=== PATIENT | female | born 1955 | race Caucasian/White ===

== ENCOUNTER → 2016-11-30 | Outpatient (CLI) | payer BC | END | disposition home or self-care (01) | LOC: GMAL 10:35 | PROVIDERS: ATTEND Family Medicine | DX: D51.3 Other dietary vitamin B12 deficiency anemia (principal); E83.42 Hypomagnesemia; D55.9 Anemia due to enzyme disorder, unspecified ==

== ENCOUNTER → 2017-01-13 | Outpatient (CLI) | payer SELFPAY ==
--- NOTE | 2017-01-13 12:17 | CT ---
EXAM DESCRIPTION: CT Abdomen/Pelvis w/wo Contrast CLINICAL HISTORY: POST-TRAUMA: ABD PAIN, LOW BACK PAIN, HEMATURIA COMPARISON: None. TECHNIQUE: Spiral-axial scans at 5.0 mm intervals through the abdomen and pelvis before and after standard dose nonionic IV contrast. Coronal and sagittal 2.0 mm reconstructions. Delayed 5 mm axial scans, liver through the pubic symphysis. No adverse reactions. Total Exam DLP 2477.01 mGy - cm. This exam was performed according to our departmental CT dose-optimization program which includes automated exposure control, adjustment of the mA and/or kV according to patient size and/or use of iterative reconstruction technique; to reduce radiation dose to as low as reasonably achievable (ALARA). FINDINGS: Lung bases and pleura: Negative. Liver, Stomach, Spleen, Adrenal Glands: Spleen is unremarkable with calcifications in the splenic hilum. At least one splenule inferior to the hilum. Normal density and enhancement of the liver with craniocaudal dimension of the right lobe 19 cm. Gastric antral diverticulum versus ulcer on the lesser curvature (series 4, image 29, and series 700, image 104). No perforation. 1 cm cyst versus adenoma in the right adrenal gland. Stomach is unremarkable. Pancreas, Gallbladder, Ducts: Surgical clips in the gallbladder fossa with no fluid. Minimal dilation of the duct. Normal size and enhancement of the pancreas. Kidneys and Ureters: Normal size density and enhancement. No hydronephrosis or hydroureter. No perirenal fatty stranding or fluid. No contrast extravasation from the kidneys or ureters. Mesentery: No free air or fatty stranding. No free fluid or fluid in the cul-de-sac. Aorta: Normal caliber. Periaortic tissues negative. Small Bowel: Normal caliber with no distention or significant air-fluid levels. Radiodense material in the distal small bowel. Terminal Ileum/Cecum: Normal caliber with no surrounding fatty stranding. Appendix is not seen. Colon: Fecal material throughout the colon with no distention. Mild redundancy of the sigmoid colon. Pelvic Organs: Uterus in normal position. Ovaries not well seen. No fluid in the cul-de-sac. No radiodense stones in the urinary bladder. Minimal IV contrast in the bladder on the delayed images. No contrast extravasation. Spine and Bony Pelvis: Spondylosis L4-5 and L5-S1 with degenerative gas formation at L4-5 and posterior disc bulge. Spondylosis also at L1-2 posterior disc bulge. No bone destruction. Mild levoscoliosis. No definite fracture or bone destruction.. Abdominal Wall/Back Soft Tissues: Increased density in the subcutaneous tissues at the level of the mid and inferior right kidney. No fluid collection or abnormal enhancement. Posterior abdominal wall in appearance, symmetric to the left side. IMPRESSION: 1. No abnormalities are noted in the urinary tract including the kidneys ureters and urinary bladder. 2. Possible gastric ulcer in the antrum on the lesser curvature. Less likely to represent a diverticulum. No findings of perforation. Consider gastroscopy. 3. Mild hepatomegaly with normal density and enhancement. No focal lesions. 4. Spondylosis at L1-2, L4-5 and L5-S1. Degenerative gas formation in the L4-5 disc with bulging. 5. Soft tissue fatty contusion, subcutaneous tissues, posterior to the mid and lower right kidney with no abnormal enhancement or fluid collection. CRITICAL COMMUNICATION: The critical value was discussed directly by phone with Dr. Johny Alvarez, at approximately 1208 hours, on January 13, 2017. Electronically signed by: Harjinder Plasencia MD 01/13/2017 12:16 PM CDT Workstation: [id number]
== END ==
LOC: CT 11:01
PROVIDERS: ATTEND Family Medicine
DX: R10.9 Unspecified abdominal pain (principal); M54.5 Low back pain; R31.0 Gross hematuria

== ENCOUNTER → 2017-01-13 | Outpatient (CLI) | payer BC | END | disposition home or self-care (01) | LOC: GMAL 14:39 | PROVIDERS: ATTEND Family Medicine | DX: R31.0 Gross hematuria (principal) ==

== ENCOUNTER → 2017-01-17 | Outpatient (CLI) | payer BC | END | disposition home or self-care (01) | LOC: GMAL 16:52 | PROVIDERS: ATTEND Family Medicine | DX: R31.0 Gross hematuria (principal) ==

== ENCOUNTER → 2017-02-22 | Outpatient (CLI) | payer BC | END | disposition home or self-care (01) | LOC: GMAL 10:40 | PROVIDERS: ATTEND Family Medicine | DX: D64.9 Anemia, unspecified (principal); E03.8 Other specified hypothyroidism ==

== ENCOUNTER → 2017-04-14 | Outpatient (CLI) | payer BC ==
--- NOTE | 2017-04-18 17:05 | MAM ---
EXAM DESCRIPTION: 3D Screening BILATERAL : Digital Mammography. CLINICAL HISTORY: 61 years Female SCREENING . No complaints. No family history of breast cancer. Postmenopausal. Taking HRT 5 or more years ago. COMPARISON: 2-D digital screening bilateral studies 11/17/2015 and 09/17/2014. No prior reports available. TECHNIQUE: Bilateral CC and MLO projection full-field images, 3-D tomosynthesis digital mammographic technique. Also bilateral synthesized CC/ MLO full-field images. CAD not utilized. FINDINGS: The breast parenchymal density pattern is: Scattered areas of fibroglandular density. No skin thickening or nipple retraction bilateral solitary microcalcifications. No focal, stellate mass or density, focal asymmetry , and no suspicious microcalcifications bilaterally. Stable mammograms compared to prior study, taking into account differences in mammographic technique IMPRESSION: BI-RADS CATEGORY: 2 - BENIGN FINDINGS. FOLLOW UP: Routine digital bilateral screening, one year interval from April 2017. Written communication explaining the IMPRESSION and follow-up, will be mailed to the patient and referring health care provider. According to the [employer], yearly mammograms are recommended starting at age 40 and continuing as long as a woman is in good health. Any breast change noted on a breast self-exam should be reported promptly to the patient's healthcare provider. Breast MRI is recommended for women with an approximately 20-25% or greater lifetime risk of breast cancer, including women with a strong family history of breast or ovarian cancer and women who have been treated for Hodgkin's disease. A negative mammographic report should not delay tissue diagnosis in patients with significant clinical history or physical findings. Extremely dense breast tissue limits the sensitivity of digital mammography. Electronically signed by: Harjinder Plasencia MD 04/18/2017 5:04 PM [facility]
== END ==
LOC: MAMMO 12:36
PROVIDERS: ATTEND Family Medicine
DX: Z12.31 Encounter for screening mammogram for malignant neoplasm of breast (principal)
CPT/HCPCS: 77063; G0202

== ENCOUNTER → 2017-04-25 | Outpatient (CLI) | payer BC ==
--- NOTE | 2017-04-25 16:14 | US ---
EXAM DESCRIPTION: Pelvis Transvaginal CLINICAL HISTORY: 61 years Female, POSTMENOPAUSAL VAGINAL BLEEDING COMPARISON: None. FINDINGS: Preliminary transabdominal imaging demonstrates no significant distention of the bladder and satisfactory visualization of the pelvic structures was not possible. Transvaginal imaging demonstrates an anteverted uterus is estimated at 9.3 x 3.8 x 5.9 cm. Endometrial stripe is estimated at four or 5 mm and felt to be within the limits of normal. In the anterior uterine body near the fundus to the right of midline is a hypoechoic partially shadowing 1.7 x 1.9 cm myometrial mass with a second mass in the lower uterine segment estimated at 1.6 x 1.8 cm. Left ovary is identified and estimated at 1.5 x 1.2 x 1.2 cm. The cervix is unremarkable. Right ovary is not visualized. No free abdominal fluid or pelvic fluid is evident. IMPRESSION: 1. Anteverted uterus borderline enlarged with at least two uterine fibroids estimated approaching 2 cm in size with 4 to 5 mm endometrium. 2. Normal-appearing small left ovary with nonvisualization of the right ovary but no adnexal masses seen. Electronically signed by: Jorgito White MD 04/25/2017 4:13 PM INTERNAL MEDICINE DOCTOR
== END | disposition home or self-care (01) ==
LOC: US 04-22 14:16
PROVIDERS: ATTEND Physician Assistant
DX: D25.9 Leiomyoma of uterus, unspecified (principal); N95.0 Postmenopausal bleeding

== ENCOUNTER → 2017-05-11 | Outpatient (CLI) | payer BC | END | disposition home or self-care (01) | LOC: GMAL 16:47 | PROVIDERS: ATTEND Family Medicine | DX: R53.82 Chronic fatigue, unspecified (principal) ==

== ENCOUNTER → 2017-05-12 | Outpatient (CLI) | payer BC | END | disposition home or self-care (01) | LOC: LAB.O 13:40 | PROVIDERS: ATTEND Family Medicine | DX: R19.7 Diarrhea, unspecified (principal); R50.9 Fever, unspecified ==

== ENCOUNTER → 2017-05-26 | Outpatient (CLI) | payer BC, OTHER ==
--- NOTE | 2017-05-26 22:34 | MRI ---
EXAM DESCRIPTION: Brain w/wo Contrast CLINICAL HISTORY: HEADACHES COMPARISON: None Available. TECHNIQUE: Contiguous axial images of the brain were obtained without and with the administration of intravenous contrast. FINDINGS: There is trace fluid in the right mastoid air cells. There is no acute intracranial hemorrhage or mass effect. Ventricular system is within normal limits. There is normal barrow-white matter differentiation. The visualized paranasal sinuses and mastoid air cells are otherwise within normal limits. No focal abnormal enhancement is seen. IMPRESSION: No acute intracranial abnormalities. Electronically signed by: Harjinder Yu 05/26/2017 10:33 PM [facility]
== END | disposition home or self-care (01) ==
LOC: MRI 08:07
PROVIDERS: ATTEND Family Medicine
DX: R51 Headache (principal)

== ENCOUNTER → 2017-10-04 | Outpatient (CLI) | payer BC ==
--- NOTE | 2017-10-06 09:07 | US ---
EXAM DESCRIPTION: Venous,Lower Extremity RT CLINICAL HISTORY: PAIN IN RIGHT LEG COMPARISON: None Available. TECHNIQUE: Right lower extremity venous duplex FINDINGS: Doppler evaluation of the right lower extremity deep veins was performed. Normal color flow is seen in the common femoral, superficial femoral, profunda femoral and greater saphenous veins. Normal flow is seen in the popliteal vein and veins below the knee in the calf. Normal venous compressibility and flow augmentation. IMPRESSION: Negative for evidence of deep venous thrombosis on right lower extremity venous Doppler sonogram. Electronically signed by: Yahir Reyes MD 10/06/2017 9:05 AM CDT
== END ==
LOC: US 15:47
PROVIDERS: ATTEND Nurse Practitioner Family
DX: M79.604 Pain in right leg (principal)

== ENCOUNTER → 2017-10-07 | Outpatient (CLI) | payer BC ==
--- NOTE | 2017-10-07 18:21 | RAD ---
EXAM DESCRIPTION: Pelvis CLINICAL HISTORY: 62 years Female, PAIN IN RIGHT HIP COMPARISON: Previous study June 03, 2016 TECHNIQUE: AP view of hips and pelvis FINDINGS: Sclerotic lesion in the proximal femur is seen which appears benign and unchanged. Prominent bone island or old bone infarct might be considered. Pelvic calcifications consistent with phleboliths. Mild degenerative changes in the lower L-spine. Bones of the pelvic ring appear intact. No hip fracture or dislocation. No change since previous study. IMPRESSION: Negative. Electronically signed by: Yahir Reyes MD 10/07/2017 6:20 PM CDT
--- NOTE | 2017-10-07 18:24 | RAD ---
EXAM DESCRIPTION: Knee,Right Complete CLINICAL HISTORY: 62 years, Female, PAIN IN RIGHT KNEE COMPARISON: Previous x-ray knee June 03, 2016 TECHNIQUE: Four views of the right knee including standing views FINDINGS: No fracture or dislocation. Bones appear normally mineralized with normal trabecular pattern. Narrowed appearance of medial more than lateral compartments on frontal view. Spurring is seen at tibial spines. Mild medial joint line spurring. Sclerosis and eburnation of the medial more than lateral femoral condyle is seen. Lateral view shows normal position of the patella. Mild posterior superior spurring of the patella. Question small suprapatellar knee joint effusion. Normal contour of quadriceps and patellar tendons. There is lateral tilt of the patella without subluxation on sunrise patellar view. Medial spurring is seen involving patella and anterior femoral trochlea. No change since previous study. IMPRESSION: Degenerative changes as described, stable since previous study. Electronically signed by: Yahir Reyes MD 10/07/2017 6:22 PM CDT
== END ==
LOC: RAD 08:15
PROVIDERS: ATTEND Orthopaedic Surgery
DX: M25.561 Pain in right knee (principal); M25.551 Pain in right hip

== ENCOUNTER → 2018-03-07 | Outpatient (CLI) | payer BC | LOC: GMAL 10:51 | PROVIDERS: ATTEND Family Medicine | DX: D51.3 Other dietary vitamin B12 deficiency anemia (principal); E03.8 Other specified hypothyroidism; I10 Essential (primary) hypertension; E78.4 Other hyperlipidemia; E55.9 Vitamin D deficiency, unspecified ==

== ENCOUNTER → 2018-03-09 | Outpatient (CLI) | payer BC ==
--- NOTE | 2018-03-13 07:25 | MRI ---
Procedure: MR RIGHT KNEE WITHOUT IV CONTRAST Exam Date: 03/09/2018 12:00 AM CDT Ordering Provider: FLORENCE SHAH Clinical Indication: Right knee pain Comparison: None TECHNIQUE: Multiplanar, multisequence MR images of the right knee were obtained. FINDINGS: ACL and PCL are intact. Complex tear of the medial meniscus involving a posterior root avulsion as well as an oblique undersurface tear in the body of the medial meniscus. There is 5 mm of meniscal extrusion. Resultant full-thickness chondrosis in the medial compartment with subchondral edema and cystic changes seen within the medial femoral condyle as well as tibial plateau. MCL is bowed yet intact. Findings are compatible with chronic grade 1 MCL sprain. The lateral meniscus is intact. Lateral compartment cartilage demonstrates mild chondrosis without full-thickness defect.. Lateral collateral ligamentous complex is intact. Patellofemoral extensor mechanism is unremarkable. Multifocal patchy full-thickness chondrosis is seen within the lateral more so than medial patellar facet predominantly inferiorly. Trochlear cartilage appears preserved. Small joint effusion with synovitis. No definite loose bodies. Trace septated Castellon cyst. Bone marrow is otherwise unremarkable. IMPRESSION: 1. Multifocal medial meniscal tear including a posterior root avulsion tear as well as oblique undersurface tear of the body of the medial meniscus. Resultant full-thickness medial compartment chondrosis. 2. Patchy full-thickness chondrosis in the patellofemoral compartment. 3. Small joint effusion and synovitis with trace septated Castellon cyst. Electronically signed by: Patricio Alexandra MD 03/13/2018 7:23 AM CDT
== END ==
LOC: MRI 11:05
PROVIDERS: ATTEND Family Medicine
DX: S83.241A Other tear of medial meniscus, current injury, right knee, initial encounter (principal); M22.41 Chondromalacia patellae, right knee; M71.21 Synovial cyst of popliteal space [Baker], right knee; M25.461 Effusion, right knee

== ENCOUNTER → 2018-04-12 | Outpatient (CLI) | payer BC | LOC: GMAL 17:11 | PROVIDERS: ATTEND Family Medicine | DX: R30.0 Dysuria (principal) ==

== ENCOUNTER → 2018-04-18 | Outpatient (CLI) | payer BC | LOC: RESP 15:59 | PROVIDERS: ATTEND Orthopaedic Surgery | DX: Z01.818 Encounter for other preprocedural examination (principal) ==

== ENCOUNTER → 2018-04-21 | Outpatient (CLI) | payer BC ==
--- NOTE | 2018-04-24 15:23 | MAM ---
EXAM DESCRIPTION: 3D Screening BILATERAL : Digital Mammography. CLINICAL HISTORY: 62 years Female SCREENING . No complaints. No personal or family history of breast cancer. Childbirth. Postmenopausal 10 years. Has taken HRT previously.. Lifetime risk of developing breast cancer (Tyrer-Cuzick model)(%): 6.6. COMPARISON: Bilateral screening digital breast tomosynthesis 04/14/2017.. No prior reports available. TECHNIQUE: Bilateral CC and MLO projection full-field images, digital tomosynthesis mammographic technique. Bilateral digital 2-D full-field MLO images. CAD not available for tomosynthesis or 2-D images. FINDINGS: The breast parenchymal density pattern is: Scattered areas of fibroglandular density. No skin thickening or nipple retraction.. Bilateral scattered nodular densities are stable since the prior study. No new focal, stellate mass or density, focal asymmetry , and no suspicious microcalcifications bilaterally. Stable mammograms compared to prior study. IMPRESSION: Benign exam. BIRAD CATEGORY: 2 BENIGN FINDINGS. RECOMMENDATIONS: FOLLOW UP: Routine digital bilateral mammographic screening, one year interval from April 2018. Written communication explaining the IMPRESSION and follow-up, will be mailed to the patient and referring health care provider. According to the [employer], yearly mammograms are recommended starting at age 40 and continuing as long as a woman is in good health. Any breast change noted on a breast self-exam should be reported promptly to the patient's healthcare provider. Breast MRI is recommended for women with an approximately 20-25% or greater lifetime risk of breast cancer, including women with a strong family history of breast or ovarian cancer and women who have been treated for Hodgkin's disease. A negative mammographic report should not delay tissue diagnosis in patients with significant clinical history or physical findings. Extremely dense breast tissue limits the sensitivity of digital mammography. Electronically signed by: Harjinder Plasencia MD 04/24/2018 3:22 PM ASSISTANT SPA DIRECTOR
== END ==
LOC: MAMMO 08:22
PROVIDERS: ATTEND Family Medicine
DX: Z12.31 Encounter for screening mammogram for malignant neoplasm of breast (principal)

== ENCOUNTER → 2018-04-23 | Outpatient (CLI) | payer BC | LOC: SL 19:30 | PROVIDERS: ATTEND Family Medicine | DX: G47.33 Obstructive sleep apnea (adult) (pediatric) (principal) ==

== ENCOUNTER 2018-04-26 05:42 | Inpatient (IN) | payer BC ==
--- NOTE | 2018-04-24 09:58 | HP ---
CHIEF COMPLAINT: Right knee pain. HISTORY OF PRESENT ILLNESS: Mary is a 62-year-old female with a history of pain in the knee. She has had pain going on that causes her discomfort diffusely about the knee. She denies any radiation of that pain and denies any neurologic symptoms. She has had no trauma related to the pain. She has failed conservative measures. Because of her failure of conservative measures, she has requested operative intervention. After discussing the risks, benefits and alternatives to that, the patient has given informed consent for total knee arthroplasty. PAST SURGICAL HISTORY: 1. Cataract removal. 2. Carpal tunnel syndrome. 3. Cholecystectomy. 4. section. 5. Tubal ligation. MEDICATIONS: 1. Tylenol with codeine. 2. Cyclobenzaprine. 3. Duloxetine. 4. Estradiol. 5. Folate. 6. Hydrochlorothiazide. 7. Hydroxychloroquine. 8. Leflunomide. 9. Levothyroxine. 10. Losartan. 11. Medroxyprogesterone. 12. Methotrexate. 13. Metronidazole. 14. Mometasone. 15. Montelukast. 16. Naprosyn. 17. Pantoprazole. 18. ProAir. 19. Ranitidine. 20. Sertraline. 21. Tramadol. ALLERGIES: DOXYCYCLINE. FAMILY HISTORY: None pertinent to today's complaint. SOCIAL HISTORY: The patient does not drink, smoke or use any illicit drugs. REVIEW OF SYSTEMS: Negative except as indicated in the History of Present Illness. PHYSICAL EXAMINATION: MENTAL STATUS: The patient is awake, alert, and is able to give a good history and participate in the physical. The patient is oriented to person, place and time. SKIN: Normal tone and turgor. HEENT: Normocephalic, atraumatic. Pupils equal, round and reactive. Mucosal membranes are moist. NECK: Normal range of motion. No thyromegaly, no lymphadenopathy. CHEST: Normal respiratory excursion. CARDIAC: Regular rate and rhythm. No murmurs, rubs or gallops. MUSCULOSKELETAL: She has pain diffusely about the knee, but most prominent along the medial aspect. She has crepitus throughout her range of motion. Sensation is intact. The leg is warm and well perfused. She has no varus/ valgus or anterior/posterior laxity. She has full extension with flexion to about 120 degrees and crepitus throughout. The bilateral upper extremities show full active range of motion without pain. She has intact sensation. They are warm and well perfused. Strength is 5/5. There is no deformity. The left lower extremity shows no significant pain to palpation. She has intact sensation throughout. There is no varus/valgus or anterior/posterior laxity. She does walk with an assistive device. IMAGING: X-rays show arthritis, especially along the medial compartment. ASSESSMENT: 1. Rheumatoid arthritis. PLAN: The plan at this point is for total knee arthroplasty. We have discussed the risks, benefits, and alternatives to that and the patient has given informed consent. #[id number] [facility]
[2018-04-26] MEDS ORDERED: LACTATED RINGERS 1,000 ML ONE ×2 (05:53→10:22)
[2018-04-26] MEDS ORDERED: SODIUM CHL 0.9% 100ML MINI-BAG 100 ML IVPB ONE (05:53)
[2018-04-26] MEDS ORDERED: TRANEXAMIC ACID 1,000 MG/10 ML VIAL ONE ×2 (05:53→05:54)
[2018-04-26] MEDS ORDERED: ceFAZolin SODIUM 1 GM VIAL ONE ×2 (05:53→06:32)
[2018-04-26] MEDS ORDERED: VANCOMYCIN HCL INJ 1,000 MG VIAL IVPB ONE ×4 (05:53→19:39)
[2018-04-26] MEDS ORDERED: SODIUM CHLORIDE 0.9% 250ML 250 ML ONE ×3 (05:54→19:38)
[2018-04-26] MEDS ORDERED: SODIUM CHLORIDE 0.9% 100ML 100 ML IVPB ONE (05:55)
[2018-04-26] MEDS ORDERED: MIDAZOLAM INJ 2 MG/2 ML VIAL ONE (06:30)
[2018-04-26] MEDS ORDERED: fentaNYL CITRATE INJ 50 MCG/ML AMP ONE (06:31)
[2018-04-26] MEDS ORDERED: MORPHINE SULF *EPIDURAL* 1 MG/ML VIAL ONE (06:31)
[2018-04-26] MEDS ORDERED: ACETAMINOPHEN IV 1000MG 100 ML ONE (06:31)
[2018-04-26] MEDS ORDERED: SCOPOLAMINE PATCH 1.5MG 1 EA TD ONE (07:26)
[2018-04-26] MEDS: BUPIVACAINE 0.5% 30 ML VIAL INJ ONE ×2 (07:55→08:26)
[2018-04-26] MEDS: BUPIVACAINE LIPOSOME 13.3 MG/ML VIAL INJ ONE ×2 (07:55→08:26)
[2018-04-26] MEDS ORDERED: hydrALAZINE HCl 20 MG/ML VIAL ONE (08:06)
[2018-04-26] MEDS ORDERED: BUPIVACAINE LIPOSOME 13.3 MG/ML VIAL INJ ONE (08:26)
[2018-04-26] MEDS ORDERED: ELECTROLYTE-A 1,000 ML IVS ONE (08:33)
[2018-04-26] MEDS ORDERED: ACETAMINOPHEN 325 MG TAB PO PRN (09:22)
[2018-04-26] MEDS ORDERED: MAGNESIUM HYDROXIDE 30 ML UD PO PRN (09:22)
[2018-04-26] MEDS ORDERED: PROMETHAZINE HCL INJ 12.5 MG in SODIUM CHLORIDE 0.9% 50ML 50 ML IVPB PRN (09:22)
[2018-04-26] MEDS ORDERED: BENZOCAINE-MENTH LOZ (CEPACOL) 1 EA LOZ MT PRN (09:22)
[2018-04-26] MEDS ORDERED: NALOXONE HCL INJ 0.4 MG/ML VIAL IV PRN (09:22)
[2018-04-26] MEDS ORDERED: ZOLPIDEM TARTRATE 5 MG TAB PO PRN (09:22)
[2018-04-26] MEDS ORDERED: MORPHINE SULFATE INJ 10 MG/ML VIAL IM PRN (09:22)
[2018-04-26] MEDS ORDERED: ONDANSETRON INJ 4 MG/2 ML VIAL IV PRN (09:22)
[2018-04-26] MEDS ORDERED: TEMAZEPAM 15 MG CAP PO PRN (09:22)
[2018-04-26] MEDS ORDERED: MORPHINE SULFATE INJ 10 MG/ML VIAL IV PRN (09:22)
[2018-04-26] MEDS ORDERED: BISACODYL SUPPOSITORY 10 MG PR PRN (09:22)
[2018-04-26] MEDS ORDERED: ALUMINUM & MAGNESIUM HYDROXIDE 30 ML UD PO PRN (09:22)
[2018-04-26] MEDS ORDERED: PROMETHAZINE HCL INJ 25 MG in SODIUM CHLORIDE 0.9% 50ML 50 ML IVPB PRN (09:22)
[2018-04-26] MEDS ORDERED: traMADol HCL 50 MG TAB PO PRN (09:22)
[2018-04-26] MEDS ORDERED: ACETAMINOPHEN 500 MG TAB PO PRN (09:22)
[2018-04-26] MEDS ORDERED: TRANEXAMIC ACID INJ 1,000 MG in SODIUM CHLORIDE 0.9% 100ML 100 ML IVPB ONE (09:22)
[2018-04-26] MEDS ORDERED: MORPHINE PCA 1 MG/ML 100 ML BAG IVPB SCH (09:30)
[2018-04-26] MEDS ORDERED: METOCLOPRAMIDE HCL INJ 10 MG/2 ML VIAL IV ONE (10:00)
[2018-04-26] MEDS ORDERED: LIDOCAINE 1% 10 ML VIAL INJ ONE (10:00)
[2018-04-26] MEDS ORDERED: PROPOFOL 200 MG/20 ML VIAL IV ONE (10:00)
[2018-04-26] MEDS ORDERED: DEXAMETHASONE INJ 10 MG/ML VIAL IV ONE (10:00)
[2018-04-26] MEDS ORDERED: GLUCAGON INJ 1 MG VIAL SUBCU PRN (13:59)
[2018-04-26] MEDS ORDERED: DEXTROSE 50% 25 GM/50 ML SYG IV PRN (13:59)
[2018-04-26] MEDS ORDERED: INSULIN LISPRO 100 UNITS/ML PEN SUBCU ONE (13:59)
[2018-04-26] MEDS: IV SET AND CAP CHANGE INJ INJ SCH (14:26)
[2018-04-26] MEDS ORDERED: ceFAZolin SODIUM 2 GRAMS PREMI 50 ML IVPB ONE ×2 (16:17→19:39)
[2018-04-26] MEDS ORDERED: SODIUM CHLORIDE 0.9% 50ML 50 ML ONE (16:17)
[2018-04-26] MEDS ORDERED: PROMETHAZINE HCL INJ 25 MG/ML VIAL ONE (16:17)
[2018-04-26] MEDS: SODIUM CHLORIDE 0.9% (FLUSH) 10 ML SYG IV PRN ×2 (16:25→18:11)
[2018-04-26] MEDS: DEX 5% W/NACL 0.45% 1000ML 1,000 ML IVS PRN (16:25)
[2018-04-26] MEDS: ceFAZolin SODIUM 2 GRAMS PREMI 2 GM in PREMIX BAG 1 BAG IVPB SCH ×2 (16:28→23:48)
--- NOTE | 2018-04-26 17:01 | RAD ---
EXAM DESCRIPTION: Knee,Right 2 or More Views CLINICAL HISTORY: 62 years Female, TKA TECHNIQUE: 2 views of the right knee were performed. COMPARISON: October 07, 2017. FINDINGS: Postsurgical changes consistent with recent total knee arthroplasty are noted. The hardware appears to be in near normal anatomic alignment. Moderate suprapatellar joint effusion noted. The overlying anterior subcutaneous soft tissues demonstrate air likely sequela of recent surgery. Mild soft tissue swelling noted surrounding the knee joint. IMPRESSION: 1. Recent postsurgical changes consistent with right total knee arthroplasty with intact hardware. Electronically signed by: Raheem Aranda MD 04/26/2018 4:59 PM [facility]
[2018-04-26] MEDS: INSULIN LISPRO 100 UNITS/ML PEN SUBCU SCH ×2 (17:18→21:42)
[2018-04-26] MEDS: CELECOXIB 100 MG CAP PO SCH (17:20)
[2018-04-26] MEDS: VANCOMYCIN HCL INJ 1,000 MG in SODIUM CHLORIDE 0.9% 250ML 250 ML IVPB SCH (18:10)
[2018-04-26] MEDS ORDERED: ENOXAPARIN SODIUM 30 MG/0.3 ML SYG SUBCU ONE (19:39)
[2018-04-26] MEDS: DULoxetine HCL 30 MG CAP PO SCH (20:22)
[2018-04-26] MEDS: LOSARTAN POTASSIUM 100 MG TAB PO SCH (20:23)
[2018-04-26] MEDS: MONTELUKAST 10 MG TAB PO SCH (20:23)
[2018-04-26] MEDS: DOCUSATE CALCIUM 240 MG CAP PO SCH (20:23)
[2018-04-26] MEDS: NON-FORMULARY MEDICATION 1 EA MIS (Hydroxychloroquine [Plaquenil] 200 MG) PO SCH (20:25)
--- NOTE | 2018-04-26 22:57 | CONS ---
DATE OF CONSULTATION: 04/26/18 SUPERVISING PHYSICIAN: Jorgito Gage M.D. REASON FOR CONSULTATION: Right total knee arthroplasty. HISTORY OF PRESENT ILLNESS: Ms. Cline is a 62 year-old female patient that has a longstanding history of knee pain. The pain had been causing her significant discomfort and interfering with her activities of daily living. She denied any trauma related to the pain but it failed to have any significant relief of the pain after conservative measures. Due to the failure of the conservative measures she requested elective operative intervention to help with knee pain. She was admitted today for elective total right knee arthroplasty. She had no intraoperative complications and was seen in the immediate postoperative state. She was seen in stable condition. PAST MEDICAL HISTORY: 1. Asthma. 2. Gastroesophageal reflux disease. 3. Irritable bowel syndrome with diarrhea predominantly diagnosed in 2018. 4. Prajapati's neuroma. 5. Right renal contusion and hematuria in 2017. 6. Allyson's thyroiditis. 7. Iron deficiency anemia. 8. Depression. 9. Rosacea. 10. Obstructive sleep apnea recently diagnosed within the last week not currently on CPAP. PAST SURGICAL HISTORY: 1. Appendectomy. 2. Cholecystectomy. 3. section times 1. 4. Bilateral cataract removal. HOME MEDICATIONS: 1. Synthroid 0.12 mg daily. 2. Zantac 300 mg daily. 3. Vitamin D3 4,000 units daily. 4. Turmeric 1 capsule daily. 5. Magnesium 400 mg 1 daily. 6. Imodium AD 2 mg daily as needed. 7. Align 4 mg daily. 8. Albuterol Pro inhaler 2 puffs every 6 hours as needed. 9. Tramadol 50 mg every 6 hours as needed. 10. Flexeril 5 mg at bedtime as needed. 11. Hydrochlorothiazide 12.5 mg daily. 12. Folic acid 3 mg daily. 13. Cymbalta 60 mg at bedtime. 14. Cozaar 100 mg at bedtime. 15. Arava 20 mg daily. 16. Plaquenil 200 mg b.i.d. 17. Potassium chloride 10 mEq daily. 18. Pantoprazole 40 mg daily. 19. Singulair 10 mg at bedtime. 20. Systane Ultra as needed. ALLERGIES: PREVNAR 13, ALUMINUM, DIPHTHERIA TOXOID, DOXYCYCLINE, SORBITAN. FAMILY HISTORY: Father has history of type 2 diabetes mellitus with bilateral knee replacements. Mother is healthy. She has 3 brothers, one with diabetes and colon polyps, one with arthritis and another that is healthy. She has 2 sisters, one with depression, the other with Crohn's, diabetes and colon polyps. She has 1 sone who is healthy and one daughter who is healthy. 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 She is . She has 2 children. She has never smoked. She does not drink alcohol or use illicit drugs. She lives in [place], [place]. REVIEW OF SYSTEMS: CONSTITUTIONAL: Denies any fevers, chills, body aches, general malaise, unintentional weight loss or gain. HEENT: Denies any headaches, sore throat, nasal congestion, ear aches, vision changes. RESPIRATORY: Denies shortness of breath, coughing or wheezing. CARDIOVASCULAR: Denies any chest pains, palpitation or syncopal episodes. GASTROINTESTINAL: Has history of irritable bowel syndrome with predominantly diarrhea, but denies any constipation, abdominal pains. GENITOURINARY: Denies dysuria, hematuria or polyuria, or other urinary symptoms. MUSCULOSKELETAL: As noted in History of Present Illness. NEUROLOGIC: Denies any syncopal episodes, ataxia, seizures or other neuromotor deficits. PHYSICAL EXAMINATION: VITAL SIGNS: Temperature 96, pulse 82, blood pressure 123/82, respirations 14, satting 92% on room air. Weight 118.3 kg. GENERAL: The patient is seen in the immediate postoperative state. She is diaphoretic but complains of no chest pains, shortness of breath. Just has a feeling of hot flashes but appears to be in no acute distress. CHEST: Lungs are clear to auscultation bilaterally. HEART: Regular rate and rhythm with no appreciable murmurs, gallops, or rubs. ABDOMEN: Obese but soft, non-tender with positive bowel sounds. EXTREMITIES: Right knee has a large dressing in place with Iceman. Distally pulses were 2+ bilaterally with capillary refill brisk. NEUROLOGIC: She is alert and oriented times three. Facial features were symmetrical. Extraocular movements are within normal limits. There is no notable nystagmus. She moves all extremities ad vito. INTEGUMENT: Skin is diaphoretic but warm and pink. LABORATORY: Postoperative glucose was 240, troponin was less than 0.02. Postoperative H&H is pending. EKG postoperatively showed no acute ST changes or T wave inversions and is unchanged from preoperative EKG. RADIOLOGY: Postoperative right knee x-ray per radiology interpretation shows recent post surgical changes consistent with total right knee arthroplasty with hardware. ASSESSMENT: 1. Right knee pain failing to respond to outpatient treatment measures requiring elective surgical procedure to include elective total right arthroplasty for symptom control, immediate postoperative day 0. Surgery performed by Dr. Cl George, orthopedic surgeon. 2. History of asthma. 3. Gastroesophageal reflux disease, monitoring. 4. History of irritable bowel syndrome with no complications with primarily diarrhea. 5. 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 6. History of iron deficiency anemia. 7. Depression. 8. History of rosacea. PLAN: Will follow the patient postoperatively as she progresses through her physical therapy and rehabilitation phase of her surgery. Will defer management orthopedic and physical therapy to Dr. George and Physical Therapy. Will resume her home medications once those have been updated and verified as appropriate. Will anticipate her length of stay to be at least 2 to 3 days. At this time, discharge plan in place as far as continued physical therapy. Will continue to follow that prior to discharge. Until she has met her physical therapy goals and can transition to outpatient management will continue to monitor and treat as needed. #[id number] [facility]
[2018-04-26] MEDS: ENOXAPARIN SODIUM 30 MG/0.3 ML SYG SUBCU SCH (23:35)
[2018-04-27] MEDS: VANCOMYCIN HCL INJ 1,000 MG in SODIUM CHLORIDE 0.9% 250ML 250 ML IVPB SCH (05:49)
[2018-04-27] MEDS ORDERED: ceFAZolin SODIUM 2 GRAMS PREMI 50 ML IVPB ONE (08:24)
[2018-04-27] MEDS: CELECOXIB 100 MG CAP PO SCH ×2 (08:29→17:12)
[2018-04-27] MEDS ORDERED: diphenhydrAMINE HCL 50 MG/ML VIAL IV PRN (08:42)
[2018-04-27] MEDS: HYDROcodone 5MG/APAP 325MG 1 EA TAB PO PRN (08:54)
[2018-04-27] MEDS: INSULIN LISPRO 100 UNITS/ML PEN SUBCU SCH ×4 (08:59→21:08)
[2018-04-27] MEDS: ceFAZolin SODIUM 2 GRAMS PREMI 2 GM in PREMIX BAG 1 BAG IVPB SCH (08:59)
[2018-04-27] MEDS ORDERED: MAGNESIUM OXIDE 400 MG TAB PO SCH (09:00)
[2018-04-27] MEDS: BIFIDOBACTERIUM INFANTIS 4 MG CAP PO SCH (09:03)
[2018-04-27] MEDS: POTASSIUM CHLORIDE 10 MEQ TAB PO SCH (09:04)
[2018-04-27] MEDS: LEVOTHYROXINE SODIUM 0.112 MG TAB PO SCH (09:04)
[2018-04-27] MEDS: PANTOPRAZOLE SODIUM TAB 40 MG PO SCH (09:04)
[2018-04-27] MEDS: NON-FORMULARY MEDICATION 1 EA MIS (Hydroxychloroquine [Plaquenil] 200 MG) PO SCH ×2 (09:05→21:08)
[2018-04-27] MEDS: MAGNESIUM OXIDE 400 MG TAB PO SCH (09:05)
[2018-04-27] MEDS: hydroCHLOROthiazide 12.5 MG CAP PO SCH (09:05)
--- NOTE | 2018-04-27 10:07 | PN ---
DATE: 04/26/18 POSTOPERATIVE CHECK SUBJECTIVE: Ms. Cline is doing well. Her pain is well controlled. OBJECTIVE: Afebrile. Vital signs stable. Dressing is clean, dry and intact. ASSESSMENT: Status post total knee arthroplasty. PLAN: The plan at this point is to begin weightbearing as tolerated on postoperative day 1. #[id number] [facility]
--- NOTE | 2018-04-27 10:10 | PN ---
DATE: 04/27/18 POSTOPERATIVE DAY 1 SUBJECTIVE: Ms. Cline is doing well and has adequate pain control right now. OBJECTIVE: Afebrile. Vital signs stable. Dressing is clean, dry and intact. ASSESSMENT: Status post total knee arthroplasty. PLAN: The plan at this point is to begin weightbearing as tolerated and increase CPM. [facility][id number] [facility]
--- NOTE | 2018-04-27 10:22 | OP ---
DATE OF PROCEDURE: 04/26/18 PREOPERATIVE DIAGNOSIS: 1. Rheumatoid arthritis. POSTOPERATIVE DIAGNOSIS: 1. Rheumatoid arthritis. PROCEDURE: 1. Total knee arthroplasty. SURGEON: Cl George MD. ESTHETICIAN: Harjinder Rollins CST, SA-Lois. ANESTHESIA: General anesthesia. COMPLICATIONS: None. FINDINGS: Severe arthritis with worsening of medial osteoarthritis of the knee. INDICATION: Ms. Cline has a history of arthritis for which she has undergone conservative measures. Unfortunately, she has failed to gain relief. Because of her ongoing symptoms, she has requested operative intervention. After discussing the risks, benefits and alternatives to that, the patient has given informed consent for total knee arthroplasty. PROCEDURE: The patient was brought to the Operating Room and placed in supine position. General anesthesia was induced and the patient's leg was sterilely prepped and draped. Following prepping and draping, the distal femur was exposed and using an intramedullary guide, the distal femoral cut was made. The appropriate sized cutting block was measured, pinned into place, and the anterior, posterior, and chamfer cuts were made. The ACL was transected and the tibia was subluxed. Both the medial and lateral menisci were removed. An intramedullary guide was used to make the proximal tibial cut. The appropriate sized base plate was placed and a trial polyethylene was placed. The trial femur was placed, the knee was reduced, and the knee was taken through a range of motion. The knee was stable in anterior, posterior, varus and valgus stress. The patella was measured with calipers and following that, approximately 9 mm of patellar surface was removed. A size 31 patellar component was used. Following that, the trial components were removed and the bony surfaces were thoroughly irrigated with saline. Following irrigation, the surfaces were dried and the final components were cemented into place. The excess cement was removed and the remaining cement was allowed to cure. The knee was again taken through a range of motion to confirm stability. The wound was then irrigated with saline and closure was performed using PDS to approximate the arthrotomy followed by closure of the subcutaneous tissues with a combination of running and interrupted Monocryl sutures. Sterile dressing was placed. The patient was awoken from anesthesia and taken to Recovery. POSTOPERATIVE PLAN: The patient will be weight-bearing as tolerated on postoperative day 1. COMPONENTS: Rick Triathlon knee, size 4 femur, size 4 tibia, 9 mm insert, size 31 patella. [facility][id number] [facility]
[2018-04-27] MEDS: FOLIC ACID 1 MG TAB PO SCH (11:05)
[2018-04-27] MEDS: ENOXAPARIN SODIUM 30 MG/0.3 ML SYG SUBCU SCH ×2 (11:05→23:10)
[2018-04-27] MEDS: NON-FORMULARY MEDICATION 1 EA MIS (Leflunomide [Arava] 20 MG) PO SCH ×2 (11:05→12:45)
[2018-04-27] MEDS: CYCLOBENZAPRINE HCL 10 MG TAB PO PRN (17:43)
[2018-04-27] MEDS: DEX 5% W/NACL 0.45% 1000ML 1,000 ML IVS PRN (19:50)
[2018-04-27] MEDS: DULoxetine HCL 30 MG CAP PO SCH (21:08)
[2018-04-27] MEDS: LOSARTAN POTASSIUM 100 MG TAB PO SCH (21:08)
[2018-04-27] MEDS: DOCUSATE CALCIUM 240 MG CAP PO SCH (21:09)
[2018-04-27] MEDS: MONTELUKAST 10 MG TAB PO SCH (21:09)
[2018-04-28] MEDS: HYDROcodone 5MG/APAP 325MG 1 EA TAB PO PRN ×2 (06:09→14:56)
[2018-04-28] MEDS: LEVOTHYROXINE SODIUM 0.112 MG TAB PO SCH (06:10)
[2018-04-28] MEDS: INSULIN LISPRO 100 UNITS/ML PEN SUBCU SCH ×2 (07:18→11:32)
[2018-04-28] MEDS: CELECOXIB 100 MG CAP PO SCH ×2 (07:23→16:45)
[2018-04-28] MEDS: POTASSIUM CHLORIDE 10 MEQ TAB PO SCH (07:34)
--- NOTE | 2018-04-28 07:54 | PN ---
SUPERVISING PHYSICIAN: Jorgito Gage MD DATE: 04/27/18 SUBJECTIVE: The patient appears to be doing much better today. She has had no additional diaphoretic episodes. She is much more alert. She has had good pain control and has been utilizing CPM. OBJECTIVE: VITAL SIGNS: temperature 98.5, pulse 76, blood pressure 132/78, respirations 18 , saturation 98% on 2 liters nasal cannula at rest. I&O: Positive balance of 2428 with 4628 in, 2200 out, weight 118.3 kg. GENERAL: The patient is alert this morning, she is resting and appears in no acute distress utilizing CPM. CHEST: Lungs are clear to auscultation bilaterally. HEART: Regular rate and rhythm. ABDOMEN: Soft, non-tender, positive bowel sounds. EXTREMITIES: Right knee has Chavo bandage in place. Distal pulses are strong, capillary refill brisk. NEUROLOGICAL: She is alert and oriented x 3. LABORATORY: Postoperative hemoglobin 10.8 and hematocrit 33.6. Blood sugars are now better controlled between 145 and 207. ASSESSMENT: 1. Chronic right knee pain having failed to respond to outpatient treatment measures requiring elective surgical procedure to include elective total right arthroplasty for symptom control with patient being postoperative #1.being performed by Dr. Cl George, orthopedic surgeon. 2. History of asthma, stable. 3. Gastroesophageal reflux disease, chronic and monitoring, stable. 4. History of irritable bowel syndrome with no complications with primarily diarrhea symptoms, chronic and monitoring. 5. Hypothyroidism secondary to Allyson's thyroiditis on supplementation, chronic. 6. History of iron deficiency anemia, chronic. 7. Depression. 8. History of rosacea. PLAN: Will continue to follow the patient as she progresses through her physical therapy and rehabilitation efforts. She is again encouraged to utilize incentive spirometry and deep breathing exercises. Will continue to follow for any postoperative complications. Anticipate discharge either Tuesday or Tuesday. Once discharged and transitioned to outpatient management, will continue [facility]. Until the, we will continue to monitor and treat as needed. [facility][id number] [facility]
[2018-04-28] MEDS: CYCLOBENZAPRINE HCL 10 MG TAB PO PRN (09:08)
[2018-04-28] MEDS: PANTOPRAZOLE SODIUM TAB 40 MG PO SCH (09:09)
[2018-04-28] MEDS: hydroCHLOROthiazide 12.5 MG CAP PO SCH (09:09)
[2018-04-28] MEDS: BIFIDOBACTERIUM INFANTIS 4 MG CAP PO SCH (09:10)
[2018-04-28] MEDS: MAGNESIUM OXIDE 400 MG TAB PO SCH (09:10)
[2018-04-28] MEDS: NON-FORMULARY MEDICATION 1 EA MIS (Hydroxychloroquine [Plaquenil] 200 MG) PO SCH ×2 (09:11→20:31)
[2018-04-28] MEDS: (Leflunomide [Arava] 10 MG) PO SCH (09:11)
[2018-04-28] MEDS: FOLIC ACID 1 MG TAB PO SCH (09:12)
[2018-04-28] MEDS: SODIUM CHLORIDE 0.9% (FLUSH) 10 ML SYG IV SCH ×2 (09:12→20:31)
[2018-04-28] MEDS: ENOXAPARIN SODIUM 30 MG/0.3 ML SYG SUBCU SCH ×2 (11:26→22:38)
--- NOTE | 2018-04-28 13:08 | PN ---
DATE: 04/28/18 SUBJECTIVE: She is doing pretty well and is not having significant amount of pain. OBJECTIVE: Afebrile. Vital signs stable. Wound is clean. There are no signs or symptoms of infection. ASSESSMENT: Status post total knee arthroplasty. PLAN: The plan at this point is for her to continue with weightbearing status. She will continue increasing CPM as tolerated. [facility][id number] [facility]
--- NOTE | 2018-04-28 15:58 | PN ---
DATE: 04/28/18 SUPERVISING PHYSICIAN: Jorgito Gage MD SUBJECTIVE: The patient is doing very well. She has okay control of her pain but it is still continuing to need intermittent IV pain management. She is starting to participate with physical therapy but due to pain management requirements is having some slow improvement. She is without any nausea, vomiting, diarrhea and has been afebrile.. OBJECTIVE: VITAL SIGNS: Temperature 97.5, pulse 90, blood pressure 133/76, respirations 18 , saturation 96% on room air. I&O: Positive balance of 578 with 5428 in, 4850 out. She has not yet had a bowel movement. Her weight 118.3 kg. GENERAL: The patient is resting in bedside chair eating lunch. She reports her pain is about 4/10, having just received additional pain management. She is alert. CHEST: Lungs are clear to auscultation, just slightly diminished towards the bases. HEART: Regular rate and rhythm. ABDOMEN: Soft, non-tender , positive bowel sounds. EXTREMITIES: Without cyanosis, clubbing, or edema. Right knee has a dressing in place which is clean and dry without signs of infection. Distal pulses are strong, capillary refill brisk. NEUROLOGICAL: She is alert and oriented x 3. LABORATORY: Blood sugars remain well-controlled between 148 and and 183.. ASSESSMENT: 1. Chronic right knee pain having failed to respond to outpatient treatment measures requiring elective surgical procedure to include elective total right arthroplasty for symptom control with patient being postoperative #2.with the surgery being performed by Dr. Cl George, orthopedic surgeon. 2. History of asthma, stable. 3. Gastroesophageal reflux disease, chronic and monitoring,. . 4. History of irritable bowel syndrome with no complications having previously had primary diarrhea, continuing to monitor with the patient not yet having had a bowel movement. 5. Hypothyroidism secondary to Allyson's thyroiditis on supplementation, chronic. 6. History of iron deficiency anemia, chronic. 7. Depression. 8. History of rosacea. PLAN: Will continue to follow the patient through her rehabilitation and physical therapy efforts. She is having slow progress to meet her goals in regards to her physical therapy due to some pain management, still requiring IV pain management. Anticipate discharge Tuesday or Tuesday. Once discharged she will transition to [facility]. She will be discharged on Xarelto and continue pain management with Pipestem. Until she can transition to outpatient management, we will continue to monitor and treat as needed. #[id number] [facility]
[2018-04-28] MEDS: MONTELUKAST 10 MG TAB PO SCH (20:30)
[2018-04-28] MEDS: LOSARTAN POTASSIUM 100 MG TAB PO SCH (20:30)
[2018-04-28] MEDS: DULoxetine HCL 30 MG CAP PO SCH (20:30)
[2018-04-28] MEDS: DOCUSATE CALCIUM 240 MG CAP PO SCH (20:30)
[2018-04-29] MEDS: LEVOTHYROXINE SODIUM 0.112 MG TAB PO SCH (06:23)
[2018-04-29 07:28] VITALS: BP 133/79
[2018-04-29] MEDS: NON-FORMULARY MEDICATION 1 EA MIS (Hydroxychloroquine [Plaquenil] 200 MG) PO SCH (08:03)
[2018-04-29] MEDS: SODIUM CHLORIDE 0.9% (FLUSH) 10 ML SYG IV SCH (08:03)
[2018-04-29] MEDS: FOLIC ACID 1 MG TAB PO SCH (08:03)
[2018-04-29] MEDS: (Leflunomide [Arava] 10 MG) PO SCH (08:03)
[2018-04-29] MEDS: CELECOXIB 100 MG CAP PO SCH (08:03)
[2018-04-29] MEDS: PANTOPRAZOLE SODIUM TAB 40 MG PO SCH (08:03)
[2018-04-29] MEDS: BIFIDOBACTERIUM INFANTIS 4 MG CAP PO SCH (08:04)
[2018-04-29] MEDS: MAGNESIUM OXIDE 400 MG TAB PO SCH (08:04)
[2018-04-29] MEDS: hydroCHLOROthiazide 12.5 MG CAP PO SCH (08:04)
[2018-04-29] MEDS: POTASSIUM CHLORIDE 10 MEQ TAB PO SCH (08:04)
[2018-04-29 10:11] VITALS: TEMP 98.8; O2SAT 96
[2018-04-29] MEDS: IV SET AND CAP CHANGE INJ INJ SCH (10:35)
[2018-04-29] MEDS: ENOXAPARIN SODIUM 30 MG/0.3 ML SYG SUBCU SCH (11:03)
[2018-04-29] MEDS ORDERED: MAGNESIUM HYDROXIDE 30 ML UD PO ONE (21:00)
[2018-04-29] MEDS ORDERED: BISACODYL SUPPOSITORY 10 MG PR ONE (21:00)
--- NOTE | 2018-05-06 11:39 | DS ---
SUPERVISING PHYSICIAN: Jorgito Gage M.D. ADMISSION DIAGNOSIS: 1. Total right knee arthroplasty, elective, having failed to respond to outpatient treatment measures for symptom control with surgery performed by Dr. Cl Geroge, orthopedic surgeon. 2. History of asthma. 3. Gastroesophageal reflux disease, monitoring, stable. 4. History of irritable bowel syndrome with no complications. 5. 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 6. History of iron deficiency anemia. 7. Depression. 8. History of rosacea. DISCHARGE DIAGNOSIS: 1. Total right knee arthroplasty, elective, having failed to respond to outpatient treatment measures for symptom control with surgery performed by Dr. Cl George, orthopedic surgeon, postoperative day #3. 2. History of asthma. 3. Gastroesophageal reflux disease, monitoring, stable. 4. History of irritable bowel syndrome with no complications. 5. 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 6. History of iron deficiency anemia. 7. Depression. 8. History of rosacea. REASON FOR HOSPITALIZATION: Ms. Cline is a 62 year-old female patient that has a longstanding history of knee pain. The pain had been causing her significant discomfort and interfering with her activities of daily living. She denied any trauma related to the pain but it failed to have any significant relief of the pain after conservative measures. Due to the failure of the conservative measures she requested elective operative intervention to help with knee pain. She was admitted today for elective total right knee arthroplasty. She had no intraoperative complications and was seen in the immediate postoperative state. She was seen in stable condition. LABORATORY STUDIES: Postoperative H&H was 10.8 and 33.6. Blood sugars range between 145 to 183. EKG shows sinus bradycardia with no acute findings compared to 03/30/18 preoperative workup. CONSULTATION: Medical consultation by hospitalist service. Please see that note for full details. PROCEDURE: 1. Total knee arthroplasty performed by Dr. Cl George. Please see his operative note for full details. HOSPITAL COURSE: Ms. Cline was admitted on 04/26/18 for elective total right knee arthroplasty. She had no intraoperative complications. She was followed immediately postoperative. She was found to be a little diaphoretic but in no acute distress. It was felt to be related to her blood sugar or possibly just adverse reaction to pain management. This resolved without any complications or interventions needed. She was followed closely medically and was able to progress with her physical therapy with no complications. She was felt well enough to discharge on 04/29/18 because she had met her goals to continue with outpatient management. PLAN: The patient was instructed to followup with Dr. George as scheduled. She was to resume her home medications as instructed and to call Dr. George or return to the hospital should she have any concerning symptoms. Activity is as per Physical Therapy. Walk with a walker only. Postoperative joint replacement wound management as per Dr. George which was provided at discharge. New medications at discharge included: 1. Flexeril 10 mg every 8 hours as needed. 2. Xarelto 10 mg daily, #8. 3. Tramadol 50 mg every 6 hours as needed, #30, for pain. DISPOSITION: The patient was discharged home to the care of family to continue with outpatient services, [facility]. Condition on discharge was stable and improved. #[id number] [facility]
== END 2018-04-29 12:49 | disposition home or self-care (01) | DRG 470 ==
LOC: AMB 05:42 → MS 11:20
PROVIDERS: ADMIT Orthopaedic Surgery; ATTEND Orthopaedic Surgery
PROC: 0SRC0J9 Replacement of Right Knee Joint with Synthetic Substitute, Cemented, Open Approach (ICD-10-PCS; principal; 2018-04-26 07:05)
DX: M06.9 Rheumatoid arthritis, unspecified (principal); J45.909 Unspecified asthma, uncomplicated; K21.9 Gastro-esophageal reflux disease without esophagitis; K58.9 Irritable bowel syndrome, unspecified; E06.3 Autoimmune thyroiditis; D50.9 Iron deficiency anemia, unspecified; F32.9 Major depressive disorder, single episode, unspecified; L71.9 Rosacea, unspecified; G47.33 Obstructive sleep apnea (adult) (pediatric); Z88.8 Allergy status to other drugs, medicaments and biological substances; Z88.7 Allergy status to serum and vaccine; Z88.1 Allergy status to other antibiotic agents

== ENCOUNTER → 2018-09-04 | Outpatient (CLI) | payer BC | LOC: GMAL 17:57 | PROVIDERS: ATTEND Family Medicine | DX: D50.8 Other iron deficiency anemias (principal) ==

== ENCOUNTER → 2019-02-22 | Outpatient (CLI) | payer OTHER ==
--- NOTE | 2019-02-23 06:28 | RAD ---
EXAM DESCRIPTION: Wrist,Right 3 Views CLINICAL HISTORY: 63 years Female, PAIN IN RIGHT WRIST COMPARISON: None. Findings: Location: Right wrist No acute fracture or dislocation. Tiny first CMC osteophytes. Carpal alignment is maintained. Soft tissues are unremarkable. IMPRESSION: No evidence of acute process in the right wrist. Electronically signed by: Max Dutton MD 02/23/2019 6:27 AM CDT
== END ==
LOC: RAD 10:13
PROVIDERS: ATTEND Orthopaedic Surgery
DX: M25.531 Pain in right wrist (principal)

== ENCOUNTER → 2019-05-29 | Outpatient (CLI) | payer OTHER ==
--- NOTE | 2019-05-30 08:33 | MRI ---
EXAM DESCRIPTION: Lumbar Spine w/o Contrast : Magnetic Resonance Imaging. CLINICAL HISTORY: PAIN IN LEFT LOWER LEG COMPARISON: MRI scan lumbar spine without contrast March 2015. TECHNIQUE: Multiplanar, multiple standard sequences, non contrast MRI, lumbar spine. FINDINGS: L5-S1: The disc is well visualized on axial T2 series 501, image 3. Disc is desiccated with minimal disc space loss. Bilateral endplate moderate reactive changes mostly anterior as well with Schmorl's node inferior L5 endplate. Posterior midline bulge 3 mm abutting the thecal sac. Hyperintense T2-weighted annular fissure in the posterior midline disc margin. Degenerative hypertrophy of the posterior elements: facet joints and posterior flavum ligaments more on the right. AP canal diameter 12 mm. Moderate bilateral foraminal narrowing, more on the left. L4-L5: Moderate disc space loss with anterior bulging and endplate ridging. Moderate endplate reactive changes more to the left of midline than the right. Hyperintense T1 and T2 circumscribed hemangioma L4 vertebral body. Posterior broad-based 3 mm disc bulge. Degenerative hypertrophy of the posterior elements, more on the left. AP canal diameter 10 mm. Bilateral moderate to severe foraminal narrowing. Bilateral subarticular recess narrowing with bony abutment of the bilateral L5 nerve roots. L3-L4: Minimal disc desiccation with disc space preserved. No significant bulging. Degenerative hypertrophy of the posterior elements. AP canal diameter 10 mm. Bilateral moderate foraminal narrowing more right than left. L2-L3: Disc space preserved with normal signal in the disc. Posterior elements unremarkable. Bilateral mild foraminal narrowing. L1-L2: Disc desiccation with moderate disc space loss and large anterior bulge and endplate ridging. Anterior bilateral moderate endplate reactive changes. Small Schmorl's nodes. Minimal bulge slightly to the left of midline. Mild degenerative hypertrophy of the posterior elements. Canal is patent. Mild bilateral foraminal narrowing. T12-L1: Circumscribed hyperintense T1 and T2 hemangioma L1 vertebral body. Normal signal in the disc with disc space preserved. Schmorl's node posterior inferior T12. Minimal degenerative hypertrophy of the posterior elements. Canal and foramina are patent. Conus terminates at this level. No significant scoliosis. Paravertebral soft tissues minimal paraspinal muscle atrophy.. Distal cord normal signal and caliber. Otherwise normal marrow signal in the remaining vertebral bodies and the posterior elements. Vertebral bodies are not compressed at any level. IMPRESSION: 1. Annular fissure in the posterior L5-S1 disc margin is new since the prior study. Degenerative hypertrophy of the posterior elements especially on the right has progressed since the prior study. Small disc herniation seen on the prior study is not visualized patient may have had prior microdiscectomy. 2. L4-5 disc bulge stable with no annular fissure posterior. Anterior and bilateral moderate spondylosis is stable. Bilateral foraminal narrowing has progressed since the prior study. Borderline mild central canal stenosis is stable. 3. Posterior element degenerative hypertrophy at L3-L4 is progressed since the prior study with borderline mild central canal stenosis now present compared to the prior study. L2-3 spondylosis stable since the prior study. Electronically signed by: Harjinder Plasencia MD 05/30/2019 8:32 AM [facility]
== END ==
LOC: MRI 08:00
PROVIDERS: ATTEND Family Medicine
DX: M51.86 Other intervertebral disc disorders, lumbar region (principal); M51.87 Other intervertebral disc disorders, lumbosacral region; M47.896 Other spondylosis, lumbar region; M48.061 Spinal stenosis, lumbar region without neurogenic claudication; M79.662 Pain in left lower leg

== ENCOUNTER → 2019-07-06 | Outpatient (CLI) | payer OTHER ==
--- NOTE | 2019-07-09 11:31 | US ---
EXAM DESCRIPTION: Venous,Lower Extremity LT: ULTRASOUND. CLINICAL HISTORY: LOCALIZED SWELLING, MASS AND LUMP LEFT LOWER LIMB COMPARISON: None Available. TECHNIQUE: Bennett-scale and doppler sonographic evaluation of the deep venous system of the left lower extremity. FINDINGS: Doppler evaluation shows normal color flow and normal phasicity and augmentation of the left common femoral vein, femoral vein, popliteal vein, greater saphenous vein, junction with the CFV. Also normal color flow and normal phasicity and augmentation of the peroneal, and posterior tibial vein. The left lower extremity deep veins were completely compressible; normal occlusion with transducer pressure. Bennett-scale survey showed no echogenic thrombus within these veins. IMPRESSION: 1. Duplex ultrasound evaluation of the left lower extremity deep venous system showing no evidence of thrombosis. Electronically signed by: Harjinder Plasencia MD 07/09/2019 11:30 AM [facility]
== END ==
LOC: US 11:25
PROVIDERS: ATTEND Nurse Practitioner Family
DX: R22.42 Localized swelling, mass and lump, left lower limb (principal)

== ENCOUNTER 2019-09-05 09:10 | Emergency (ER) | payer OTHER, SELFPAY ==
[2019-09-05] MEDS ORDERED: SODIUM CHLORIDE 0.9% 1000ML 1,000 ML IVS ONE (09:13)
[2019-09-05] MEDS ORDERED: ONDANSETRON INJ 4 MG/2 ML VIAL IV ONE (09:13)
[2019-09-05] MEDS ORDERED: SODIUM CHLORIDE 0.9% (FLUSH) 10 ML SYG IV PRN (09:13)
[2019-09-05] MEDS ORDERED: DICYCLOMINE HCL INJ 20 MG/2 ML AMP IM ONE (10:50)
--- NOTE | 2019-09-05 11:20 | ED.PDOC ---
History of Present Illness - General Chief Complaint: GI Problem Stated Complaint: dark stool,abd pain Time Seen by Provider: 09/05/19 09:13 Information Source: patient, RN notes reviewed, Vital Signs reviewed - History of Present Illness Initial Comments: Patient is a 64-year-old white female who presents with complaints of abdominal pain, cramping in nature, moderate in intensity, ongoing for the last 2 to 3 weeks, intermittent in nature. Patient was seen here previously and discharged home with follow-up with PCP. When she schedule her appointment with the PCP patient states the PCP asked her to come here for additional testing. Abdominal Pain Onset Location: generalized abdomen Pain Radiation: no radiation Quality: cramping, intermittent Timing/Duration: changing over time, intermittent Improving Factors: nothing Worsening Factors: nothing Associated Symptoms: nausea/vomiting - Nausea only Review of Systems - Review of Systems Constitutional: States: no symptoms reported, see HPI, malaise, weakness. Denies: chills, fever EENTM: States: no symptoms reported. Denies: blurred vision, double vision Respiratory: States: no symptoms reported. Denies: cough, short of breath, wheezing Cardiology: States: no symptoms reported. Denies: chest pain, palpitations, syncope Gastrointestinal/Abdominal: States: see HPI, abdominal pain, diarrhea, nausea Genitourinary: States: no symptoms reported. Denies: discharge, dysuria, frequency Musculoskeletal: States: no symptoms reported. Denies: back pain, joint swelling, neck pain Skin: States: no symptoms reported. Denies: change in color, rash Neurological: States: see HPI, tingling, tremors, weakness Endocrine: States: no symptoms reported Hematologic/Lymphatic: States: no symptoms reported All other Systems: Reviewed and Negative Past Medical History (General) - Patient Medical History Hx Seizures: No Hx Stroke: No Hx Asthma: Yes Hx of COPD: No Hx Congestive Heart Failure: No Hx Pacemaker: No Hx Hypertension: Yes Hx Thyroid Disease: Yes Hx Diabetes: No Hx MRSA: No Surgical History: appendectomy, cholecystectomy - Vaccination History Hx Tetanus, Diphtheria Vaccination: No Hx Influenza Vaccination: Yes Hx Pneumococcal Vaccination: Yes - Social History Hx Tobacco Use: No Hx Alcohol Use: No Hx Substance Use: No Hx Physical Abuse: No Hx Emotional Abuse: No - Female History Patient is a Female of Child Bearing Age (10 -59 yrs old): No Family Medical History - Family History Mother Family History: Unknown Living Status: Unknown Physical Exam - Physical Exam General Appearance: Alert, Anxious, Well Developed, Well Groomed, Well Hydrated, Well Nourished Eyes, Ears, Nose, Throat Exam: PERRL/EOMI, normal ENT inspection, pharynx normal Neck: non-tender, full range of motion, supple, normal inspection Respiratory: chest non-tender, lungs clear, normal breath sounds, no respiratory distress, no accessory muscle use Cardiovascular/Chest: normal peripheral pulses, regular rate, rhythm, no edema, no gallop, no JVD, no murmur Peripheral Pulses: No deficit Gastrointestinal/Abdominal: normal bowel sounds, non tender, soft, no organomegaly, no pulsatile mass Back Exam: normal inspection, no CVA tenderness, no vertebral tenderness Extremity: normal range of motion, non-tender, normal inspection Neurologic: assembler mechanical ordnance II-XII nml as tested, no motor/sensory deficits, alert, normal mood/affect, oriented x 3 Skin Exam: normal color, warm/dry Lymphatic: no adenopathy Progress - Progress Progress: Differential diagnosis: Infectious diarrhea, gastroenteritis, GI bleed, bowel obstruction among others. 09/05/19 11:21 Patient is improved after IV fluids and Bentyl. Will discharge home with a prescription for Bentyl. Patient unable to provide a stool sample. Plan on discharge home with outpatient stool studies in the laboratory. These have been ordered. Sergio Carpenter M.D. #[id number] - Results/Orders Results/Orders: 09/05/19 09:13 Sodium Chloride 0.9% (Flush) [Saline Flush Syringe] 10 ml IV PRN PRN 09/05/19 09:14 stool [FECAL OCCULT BLOOD] Stat STOOL CULTURE Stat URINALYSIS Stat Laboratory Results - last 24 hr 09/05/19 09/05/19 09:25 09:25 WBC 7.9 RBC 4.58 Hgb 12.9 Hct 38.7 MCV 84.5 MCH 28.0 MCHC 33.2 RDW 14.2 Plt Count 296 MPV 8.0 Absolute Neuts (auto) 4.40 Absolute Lymphs (auto) 2.60 Absolute Monos (auto) 0.60 Absolute Eos (auto) 0.20 Absolute Basos (auto) 0.10 Neutrophils % 56.3 Lymphocytes % 32.6 Monocytes % 7.5 Eosinophils % 2.6 Basophils % 1.0 Sodium 138 Potassium 3.3 L Chloride 101 Carbon Dioxide 26 Anion Gap 14.3 BUN 16 Creatinine 0.95 BUN/Creatinine Ratio 16.8 Random Glucose 127 H Serum Osmolality 278.4 Calcium 9.3 Total Bilirubin 0.6 Direct Bilirubin 0.1 Indirect Bilirubin 0.5 AST 19 ALT 17 Alkaline Phosphatase 101 Serum Total Protein 8.1 Albumin 4.4 Lipase 32 Departure - Departure Clinical Impression: Gastroenteritis GI bleed Qualifiers: Gastritis type: unspecified gastritis Time of Disposition: 11:22 Disposition: Discharge to Home or Self Care Condition: Good Departure Forms: ED Discharge - Pt. Copy, Patient Portal Self Enrollment Instructions: DI for Gastrointestinal Bleeding, Viral Gastroenteritis, Adult (DC) Diet: resume usual diet Activity: increase activity as tolerated Referrals: Johny Alvarez III, MD [Primary Care Provider] - 1-5 Days Prescriptions: Dicyclomine HCl [Bentyl] 10 mg IM Q6H #20 inj Home Medications: Ambulatory Orders Levothyroxine Sodium [Synthroid] 0.112 mg PO DAILY 06/19/14 Losartan Potassium [Cozaar] 100 mg PO DAILY 04/25/18 Albuterol Sulfate [Proair Hfa] 2 puff INH Q6H PRN 09/05/19 Dicyclomine HCl [Bentyl] 10 mg IM Q6H #20 inj 09/05/19 Duloxetine HCl 60 mg PO DAILY 09/05/19 Fe Fumarate-Fe Polysaccharide- [Integra] 1 cap PO BID 09/05/19 Furosemide 40 mg PO DAILY 09/05/19 Montelukast [Singulair] 10 mg PO DAILY 09/05/19 Phentermine HCl 37.5 mg PO DAILY 09/05/19 Spironolactone 50 mg PO DAILY 09/05/19
[2019-09-05 11:38] VITALS: BP 114/60; TEMP 98.1; O2SAT 96
== END 2019-09-05 11:37 | disposition home or self-care (01) ==
LOC: ER 09:10
DX: K52.9 Noninfective gastroenteritis and colitis, unspecified (principal); K29.70 Gastritis, unspecified, without bleeding; J45.909 Unspecified asthma, uncomplicated; I10 Essential (primary) hypertension; E07.9 Disorder of thyroid, unspecified; Z90.49 Acquired absence of other specified parts of digestive tract
CPT/HCPCS: 36415; 80048; 80076; 83690; 85025; J0500; J2405; J7030

== ENCOUNTER → 2019-09-08 | Outpatient (CLI) | payer OTHER | LOC: LAB.NP 16:13 | PROVIDERS: ATTEND Family Medicine | DX: K92.2 Gastrointestinal hemorrhage, unspecified (principal) ==

== ENCOUNTER → 2019-11-30 | Outpatient (CLI) | payer BC ==
--- NOTE | 2019-11-30 16:10 | RAD ---
EXAM DESCRIPTION: Knee,Left Complete CLINICAL HISTORY: 64 years Female, PAIN IN LEFT KNEE COMPARISON: None. Findings: Four views/radiographs Location: Left knee No acute fracture or dislocation. Moderate medial compartment narrowing and tricompartmental osteophytes. Lateral patellofemoral narrowing. Small joint effusion. IMPRESSION: Left knee osteoarthritis with a small joint effusion. No acute osseous abnormality. Electronically signed by: Max Dutton MD 11/30/2019 4:09 PM CDT
--- NOTE | 2019-11-30 16:10 | RAD ---
EXAM DESCRIPTION: Pelvis CLINICAL HISTORY: HIP PAIN LEFT COMPARISON: October 07, 2017 IMPRESSION: Single AP supine view of the pelvis shows no acute fracture, focal bone destruction, or joint dislocation. Mild joint space narrowing and sclerotic changes to the superior lateral acetabulum are seen compatible with mild osteoarthritic changes stable from previous. Nonaggressive-appearing sclerotic lesion of the proximal left femur is unchanged from previous. Electronically signed by: Wiley Badillo MD 11/30/2019 4:09 PM CDT
== END ==
LOC: RAD 09:06
PROVIDERS: ATTEND Orthopaedic Surgery
DX: M17.12 Unilateral primary osteoarthritis, left knee (principal); M25.462 Effusion, left knee; M16.10 Unilateral primary osteoarthritis, unspecified hip; M89.9 Disorder of bone, unspecified

== ENCOUNTER → 2020-01-10 | Outpatient (CLI) | payer BC | LOC: LAB.O 10:14 | PROVIDERS: ATTEND Orthopaedic Surgery | DX: Z01.818 Encounter for other preprocedural examination (principal) ==

== ENCOUNTER 2020-02-11 10:46 | Emergency (ER) | payer BC ==
--- NOTE | 2020-02-11 10:57 | ED.PDOC ---
History of Present Illness - General Time Seen by Provider: 02/11/20 10:53 Source: patient, Vital Signs reviewed, EMS notes reviewed Additional Information: 64-year-old female, presenting to the ER because of nausea vomiting abdominal pain and diarrhea. Patient had surgery knee replacement on her left knee on the 12th of this month, she initially was constipated she was taking some stool softener her stool became more loose, but for the past 3 days she has had some abdominal cramps diarrhea and cannot keep anything down, patient called her primary care physician and she was told to come into the hospital only previous surgery was appendectomy and patient does have a history of hypertension - History of Present Illness Timing/Duration: other - 3 days Improving Factors: nothing Worsening Factors: nothing Associated Symptoms: nausea/vomiting Allergies/Adverse Reactions: Allergies Aluminum [From Prevnar 13] Allergy (Verified 02/11/20 11:16) Diphtheria Toxoid [From Prevnar 13] Allergy (Verified 02/11/20 11:16) Pneumococcal Polysaccharides Conjug [From Prevnar 13] Allergy (Verified 02/11/20 11:16) Sorbitan [From Prevnar 13] Allergy (Verified 02/11/20 11:16) Doxycycline Adverse Reaction (Intermediate, Verified 02/11/20 11:16) Rash rash and nausea Pneumococcal Polysaccharides Adverse Reaction (Verified 02/11/20 11:16) Home Medications: Ambulatory Orders Levothyroxine Sodium [Synthroid] 0.112 mg PO DAILY 06/19/14 Losartan Potassium [Cozaar] 100 mg PO BEDTIME 04/25/18 Duloxetine HCl [Duloxetine Hydrochloride] 60 mg PO BEDTIME 09/05/19 Furosemide 40 mg PO DAILY 09/05/19 Montelukast [Singulair] 10 mg PO DAILY 09/05/19 Spironolactone 50 mg PO DAILY 09/05/19 Ascorbic Acid [Vitamin C] 500 mg PO QAM 01/15/20 Cyanocobalamin [Vitamin B12] 5,000 mcg PO QAM 01/15/20 Cyclobenzaprine HCl [Flexeril] 5 mg PO PRN 01/15/20 Integra 62.5-62.5-40-3 mg 1 mg PO BID 01/15/20 Ketoconazole (Topical) [Ketoconazole] 2 % EX PRN 01/15/20 Magnesium [Magnesium 400 mg] 1 tab PO QAM 01/15/20 Meloxicam [Mobic] 15 mg PO QPM 01/15/20 Pantoprazole Sodium [Protonix] 20 mg PO QPM 01/15/20 Potassium Chloride [K-Tab] 10 meq PO BID 01/15/20 Turmeric (Curcuma Longa) [Turmeric] 450 mg PO BID 01/15/20 Albuterol Sulfate [Proair Hfa] 2 puff INH Q6H 01/24/20 Cyclobenzaprine HCl [Flexeril] 10 mg PO Q8H PRN #30 tab 01/25/20 HYDROcodone 5MG/APAP 325MG [Hobart 5/325] 1 ea PO Q4H PRN tab 01/25/20 Rivaroxaban [Xarelto] 15 mg PO DAILY #10 tablet 01/25/20 Ondansetron Odt [Zofran ODT] 4 mg PO Q6HRS #20 tab 02/11/20 Review of Systems - Review of Systems Constitutional: States: no symptoms reported EENTM: States: no symptoms reported Respiratory: States: no symptoms reported Cardiology: States: no symptoms reported Gastrointestinal/Abdominal: States: abdominal pain, constipation, diarrhea, nausea, vomiting Genitourinary: States: no symptoms reported Musculoskeletal: States: no symptoms reported Skin: States: no symptoms reported Neurological: States: no symptoms reported Endocrine: States: no symptoms reported Hematologic/Lymphatic: States: no symptoms reported Past Medical History (General) - Patient Medical History Hx Seizures: No Hx Stroke: No Hx Asthma: Yes Hx of COPD: No Hx Congestive Heart Failure: No Hx Pacemaker: No Hx Hypertension: Yes Hx Thyroid Disease: Yes Hx Diabetes: No Hx MRSA: No - Vaccination History Hx Tetanus, Diphtheria Vaccination: No Hx Influenza Vaccination: Yes Hx Pneumococcal Vaccination: Yes - Social History Hx Tobacco Use: No Hx Alcohol Use: No Hx Substance Use: No Hx Physical Abuse: No Hx Emotional Abuse: No Family Medical History - Family History Mother Family History: Unknown Living Status: Unknown Physical Exam - Physical Exam General Appearance: Well Developed, Well Groomed, Well Hydrated Eye Exam: bilateral normal Ears, Nose, Throat: hearing grossly normal, normal ENT inspection, normal pharynx Respiratory: chest non-tender, lungs clear, normal breath sounds, no respiratory distress, no accessory muscle use Cardiovascular/Chest: normal peripheral pulses, regular rate, rhythm, no edema, no gallop, no JVD, no murmur Peripheral Pulses: radial,right: 2+, radial,left: 2+ Gastrointestinal/Abdominal: normal bowel sounds, no organomegaly, no pulsatile mass, tenderness, other - diffusse abdominal pain, no acute abdomen, no rebound and no guarding Extremity: normal range of motion, non-tender, normal inspection, no pedal edema 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, no motor/sensory deficits, alert, normal mood/affect, oriented x 3 Skin Exam: normal color Lymphatic: no adenopathy Progress - Progress Progress: ER because of nausea vomiting diarrhea, patient was constipated after having left knee replacement, patient denies any chest pain and only abdominal surgery was appendectomy, given patient's age and the fact that she did have some nausea vomiting could not keep anything down and diffuse abdominal pain I ordered abdominal pelvic CT that did not show any intra-abdominal abnormalities patient has no UTI no evidence of renal failure, and normal lipase, patient is now tolerating by mouth she will be discharged home with Zofran. Instructions were given to return to the ER if there is any severe nausea vomiting abdominal pain right lower quadrant pain back pain diarrhea bloody stools unwanted weight loss decreased oral intake unable to monitor fluids down blood in the urine blood in the stools or any other concerns 02/11/20 13:20 02/11/20 13:21 patient feels a lot better prior to discharge Departure - Departure Clinical Impression: Abdominal pain Qualifiers: Abdominal location: generalized Qualified Code(s): R10.84 - Generalized abdominal pain Vomiting Qualifiers: Vomiting type: unspecified Vomiting Intractability: non-intractable Nausea presence: with nausea Qualified Code(s): R11.2 - Nausea with vomiting, unspecified Disposition: Discharge to Home or Self Care Condition: Fair Instructions: Nausea and Vomiting, Adult (DC) Diet: full liquid diet Referrals: Johny Alvarez III, MD [Primary Care Provider] - 1-2 Weeks Prescriptions: Ondansetron Odt [Zofran ODT] 4 mg PO Q6HRS #20 tab Home Medications: Ambulatory Orders Levothyroxine Sodium [Synthroid] 0.112 mg PO DAILY 06/19/14 Losartan Potassium [Cozaar] 100 mg PO BEDTIME 04/25/18 Duloxetine HCl [Duloxetine Hydrochloride] 60 mg PO BEDTIME 09/05/19 Furosemide 40 mg PO DAILY 09/05/19 Montelukast [Singulair] 10 mg PO DAILY 09/05/19 Spironolactone 50 mg PO DAILY 09/05/19 Ascorbic Acid [Vitamin C] 500 mg PO QAM 01/15/20 Cyanocobalamin [Vitamin B12] 5,000 mcg PO QAM 01/15/20 Cyclobenzaprine HCl [Flexeril] 5 mg PO PRN 01/15/20 Integra 62.5-62.5-40-3 mg 1 mg PO BID 01/15/20 Ketoconazole (Topical) [Ketoconazole] 2 % EX PRN 01/15/20 Magnesium [Magnesium 400 mg] 1 tab PO QAM 01/15/20 Meloxicam [Mobic] 15 mg PO QPM 01/15/20 Pantoprazole Sodium [Protonix] 20 mg PO QPM 01/15/20 Potassium Chloride [K-Tab] 10 meq PO BID 01/15/20 Turmeric (Curcuma Longa) [Turmeric] 450 mg PO BID 01/15/20 Albuterol Sulfate [Proair Hfa] 2 puff INH Q6H 01/24/20 Cyclobenzaprine HCl [Flexeril] 10 mg PO Q8H PRN #30 tab 01/25/20 HYDROcodone 5MG/APAP 325MG [Hobart 5/325] 1 ea PO Q4H PRN tab 01/25/20 Rivaroxaban [Xarelto] 15 mg PO DAILY #10 tablet 01/25/20 Ondansetron Odt [Zofran ODT] 4 mg PO Q6HRS #20 tab 02/11/20 Additional Instructions: eturn to the ER if there is any severe nausea vomiting abdominal pain right lower quadrant pain back pain diarrhea bloody stools unwanted weight loss decreased oral intake unable to monitor fluids down blood in the urine blood in the stools or any other concerns
--- NOTE | 2020-02-11 12:24 | CT ---
EXAM DESCRIPTION: Abdomen/Pelvis w/Contrast CLINICAL HISTORY: 64 years Female, nausea TECHNIQUE: This exam was performed according to our departmental dose-optimization program, which includes automated exposure control, adjustment of the mA and/or kV according to patient size and/or use of iterative reconstruction technique. COMPARISON: January 13, 2017 FINDINGS: Visualized lung bases are grossly unremarkable. Hepatic steatosis. No suspicious hepatic lesion. No biliary dilatation. Cholecystectomy. The portal vein is patent. Small hiatal hernia. The spleen, pancreas and adrenal glands are unremarkable. Symmetric renal parenchymal enhancement. No hydronephrosis. No obstructing ureteral stone. Punctate nonobstructing left renal stone. Unremarkable bladder. No suspicious adnexal lesion. The uterus is anteverted. No evidence of bowel obstruction or focal inflammatory change. No findings to suggest appendicitis. No adenopathy. No focal fluid collection. No free air. Normal caliber abdominal aorta. No acute or suspicious osseous abnormality. Scattered degenerative changes present. IMPRESSION: No evidence of acute process in the abdomen or pelvis. Electronically signed by: Max Dutton MD 02/11/2020 12:22 PM CDT
[2020-02-11 13:38] VITALS: BP 138/69; TEMP 97.4; O2SAT 97
== END 2020-02-11 13:37 | disposition home or self-care (01) ==
LOC: ER 10:46
DX: R11.2 Nausea with vomiting, unspecified (principal); R19.7 Diarrhea, unspecified; R10.84 Generalized abdominal pain; I10 Essential (primary) hypertension; J45.909 Unspecified asthma, uncomplicated; E07.9 Disorder of thyroid, unspecified; Z96.652 Presence of left artificial knee joint; Z90.49 Acquired absence of other specified parts of digestive tract; Z79.899 Other long term (current) drug therapy